=== PATIENT | male | born 1945 | race Caucasian/White ===

== ENCOUNTER 2025-04-21 22:42 | Emergency (ER) | payer BC, MEDICAID, MEDICARE, OTHER ==
[2025-04-21] MEDS ORDERED: Sodium Chloride 0.9% 10 ML Syringe FLUSH PRN (22:43)
[2025-04-21] MEDS ORDERED: Etomidate 2 MG/ML 10 ML SDV ONE (23:13)
[2025-04-21] MEDS ORDERED: Rocuronium 100 MG/10 ML MDV ONE (23:14)
[2025-04-21 23:17] LABS: PLATELET COUNT,PLT 138 K/uL (150-350); RED BLOOD CELL COUNT 2.52 M/uL (4.33-5.41); RED CELL DISTRIBUTION WIDTH 20.1 % (11.2-14.1); WHITE BLOOD CELL COUNT,WBC 24.6 K/uL (4.0-10.2)
[2025-04-21] MEDS ORDERED: VANCOmycin 1.75 GM/350 ML 1.75 GM in Premix Bag 1 BAG IV ONE (23:17)
[2025-04-21 23:25] LABS: BAND PERCENT MAN 8; LYMPHOCYTES ABSOLUTE MAN 0.9840; LYMPHOCYTES PERCENT MAN 4; MONOCYTES ABSOLUTE MAN 1.7220; MONOCYTES PERCENT MAN 7; NEUTROPHILS ABSOLUTE MAN 21.8940; NRBC MANUAL 1; SEG NEUTROPHILS PERCENT MAN 81
[2025-04-21 23:31] LABS: ALANINE AMINOTRANSFERASE,ALT 34 U/L (12-78); ASPARTATE AMNIOTRANSFERASE,AST 28 U/L (15-37); BILIRUBIN TOTAL 1.3 mg/dL (0.2-1.0); BLOOD UREA NITROGEN,BUN 54 mg/dL (7-18); CARBON DIOXIDE,CO2 13.4 mmol/L (21.0-32.0); CHLORIDE,CL 106 mmol/L (98-107); CREATININE 1.66 mg/dL (0.51-1.17); PRO B-TYPE NATRIUR PEPT,BNPPRO 969 pg/mL (0-125); PROTEIN TOTAL,TP 4.5 g/dL (6.4-8.2); SODIUM,NA 140 mmol/L (136-145)
[2025-04-21 23:32] LABS: ESTIMATED GFR 42 mL/min (>=60); GLUCOSE RANDOM 450 mg/dL (70-99); POTASSIUM,K 6.5 mmol/L (3.5-5.1)
[2025-04-21] MEDS ORDERED: Etomidate 2 MG/ML 10 ML SDV IVPUSH ONE (23:37)
[2025-04-21] MEDS ORDERED: Rocuronium 100 MG/10 ML MDV IVPUSH ONE (23:38)
[2025-04-21] MEDS ORDERED: Calcium Gluconate 10% 1 GM/10 ML SDV ONE (23:49)
[2025-04-22] MEDS ORDERED: Midazolam 1 MG/ML 2 ML SDV IVPUSH ONE (00:01)
[2025-04-22] MEDS ORDERED: Calcium Gluc in NaCl, ISO-OSM 1,000 MG in Premix Bag 1 BAG IV ONE (00:02)
[2025-04-22] MEDS ORDERED: Insulin Regular, Human 100 Units/ML 3 ML Vial ONE (00:03)
[2025-04-22] MEDS ORDERED: Norepinephrine Bit/D5W Premix 250 ML IV SCH (00:13)
[2025-04-22] MEDS ORDERED: Insulin Regular, Human 100 Units/ML 3 ML Vial IVPUSH ONE (00:17)
[2025-04-22] MEDS ORDERED: EPINEPHrine in 0.9 %/Sod Chlor 250 ML ONE (01:14)
[2025-04-22] MEDS ORDERED: Atropine 0.1 MG/ML 10 ML Syringe ONE (04:34)
== END 2025-04-22 04:10 | disposition expired ==
LOC: LL.ED 22:42
DX: J96.01 Acute respiratory failure with hypoxia (principal); E87.5 Hyperkalemia; D72.829 Elevated white blood cell count, unspecified; Z79.899 Other long term (current) drug therapy; Z86.16 Personal history of COVID-19
CPT/HCPCS: 31500; 36415; 51702; 71045; 74018; 80053; 82947; 83735; 83880; 84484; 85025; 85379; 92950; 93005; 93010; 96365; 99284; 99291-25; 99292; J0171; J0612; J0692; J1815-GY; J2250; J3375; J3490; J7030